=== PATIENT | male | born 1960 | race African-American/Black ===

== ENCOUNTER 2018-08-28 08:05 | Emergency (ER) | payer OTHER ==
[~2018-08-28] VITALS: Ht 175.3 cm; Wt 70.0 kg
[~2018-08-28 08:05] MED LIST: ABILIFY; NORCO; TRAZODONE
[2018-08-28] MEDS ORDERED: KETOROLAC 30MG/ML VIAL IV STA (08:46)
[2018-08-28] MEDS ORDERED: FAMOTIDINE 20MG/2ML VIAL IV STA (08:46)
[2018-08-28] MEDS ORDERED: SODIUM CHLORIDE 0.9% 1,000 ML IV ONE (08:46)
[2018-08-28] MEDS ORDERED: MAGNESIUM/ALUMINUM HYDROXIDE/SIMETHICONE 30ML UDC PO STA (08:46)
[2018-08-28 09:46] LABS: BASOPHILS % 0.6 % (0.0-2.0); EOSINOPHILS % 1.9 % (0.0-5.0); HEMATOCRIT. 42.6 % (42.0-52.0); HEMOGLOBIN. 13.7 g/dL (14.0-18.0); LYMPHOCYTES % 24.4 % (20.0-50.0); MEAN CORPUSCULAR HEMOGLOBIN 26.2 pg (28.0-32.0); MEAN CORPUSCULAR VOLUME 81.7 fL (80.0-94.0); MEAN PLATELET VOLUME 8.2 fl (7.4-10.4); MONOCYTES % 6.1 % (2.0-8.0); PLATELET 236 x1000/uL (130-400); RED BLOOD CELL COUNT 5.21 mill/uL (4.7-6.1); RED CELL DISTRIBUTION WIDTH 13.5 % (11.6-14.6)
[2018-08-28 09:50] LABS: CLARITY URINE CLEAR (CLEAR); COLOR URINE YELLOW (YELLOW); KETONES URINE NEGATIVE (NEGATIVE); LEUKOCYTE ESTERASE URINE NEGATIVE (NEGATIVE); NITRITE URINE NEGATIVE (NEGATIVE); OCCULT BLOOD URINE NEGATIVE (NEGATIVE); PROTEIN URINE NEGATIVE (NEGATIVE); SPECIFIC GRAVITY URINE 1.018 (1.005-1.030)
[2018-08-28 10:01] LABS: CHLORIDE 107 mEq/L (98-107)
[2018-08-28 10:08] LABS: ETHANOL BLOOD < 10 mg/dL
[2018-08-28 10:23] LABS: *AMPHETAMINES SCREEN URINE NEGATIVE (NEGATIVE); *BARBITURATES SCREEN URINE NEGATIVE (NEGATIVE); *BENZODIAZEPINES SCREEN URINE NEGATIVE (NEGATIVE); *COCAINE SCREEN URINE PRESUMTIVE POSITIVE (NEGATIVE)
[2018-08-28 10:24] LABS: CANNABINOID URINE SCREEN PRESUMTIVE POSITIVE (NEGATIVE); METHADONE URINE SCREEN NEGATIVE (NEGATIVE); OPIATES URINE SCREEN NEGATIVE (NEGATIVE); PHENCYCLIDINE URINE SCREEN PRESUMTIVE POSITIVE (NEGATIVE)
[2018-08-28 11:31] VITALS: BP 101/70
== END 2018-08-28 11:50 | disposition home or self-care (01) ==
LOC: ER 08:05
DX: R10.9 Unspecified abdominal pain (principal); F19.10 Other psychoactive substance abuse, uncomplicated; G40.909 Epilepsy, unspecified, not intractable, without status epilepticus; Z86.73 Personal history of transient ischemic attack (TIA), and cerebral infarction without residual deficits
CPT/HCPCS: 36415; 71045; 80053; 80305; 81003; 83690; 85025; 96361; 96374; 96375; 99284; G0482; J1885; J3490; J7030

== ENCOUNTER 2021-04-16 16:04 | Emergency (ER) | payer OTHER ==
[~2021-04-16] VITALS: Ht 182.9 cm; Wt 81.0 kg
[~2021-04-16 16:04] MED LIST changes: +CEPH500T PO; +IBUP-2028 MT; +SULF1TAB48 PO; +T3 PO
[2021-04-16 16:15] VITALS: BP 135/86
[2021-04-16] MEDS ORDERED: CEFTRIAXONE SODIUM 1 G/VIAL IM ONE (17:30)
[2021-04-16] MEDS ORDERED: AZIT250T MT (17:52)
[2021-04-16] MEDS ORDERED: DEXA4TAB MT (17:52)
== END 2021-04-16 18:08 | disposition home or self-care (01) ==
LOC: ER 16:04
DX: U07.1 COVID-19 (principal); Z86.16 Personal history of COVID-19
CPT/HCPCS: 71045; 96372; 99284; C9803; J0696; U0003; U0005

== ENCOUNTER 2024-11-22 16:02 | Emergency (ER) | payer MEDICAID, OTHER ==
[~2024-11-22] VITALS: Ht 182.9 cm; Wt 82.0 kg
[~2024-11-22 16:02] MED LIST changes: +ALBU18HF2 IH; +AZIT250T MT; +DEXA4TAB MT; +FLUT1DIS3 INH
[2024-11-22 16:04] VITALS: BP 118/68; PULSE 78; RESP 20; TEMP 36.9; O2SAT 100
[2024-11-22 17:00] LABS: BASOPHILS % 0.7 % (0.0-2.0); EOSINOPHILS % 4.5 % (0.0-5.0); HEMATOCRIT. 39.3 % (42.0-52.0); HEMOGLOBIN. 12.2 g/dL (14.0-18.0); LYMPHOCYTES % 24.5 % (20.0-50.0); MEAN CORPUSCULAR HEMOGLOBIN 25.7 pg (28.0-32.0); MEAN CORPUSCULAR VOLUME 82.9 fL (80.0-94.0); MEAN PLATELET VOLUME 8.2 fl (7.4-10.4); MONOCYTES % 7.3 % (2.0-8.0); PLATELET 174 x1000/uL (130-400); RED BLOOD CELL COUNT 4.74 mill/uL (4.7-6.1); RED CELL DISTRIBUTION WIDTH 13.7 % (11.6-14.6); WHITE BLOOD COUNT 5.2 x1000/uL (4.5-11.0)
[2024-11-22 17:12] LABS: CLARITY URINE CLEAR (CLEAR); COLOR URINE YELLOW (YELLOW); GLUCOSE URINE NEGATIVE (NEGATIVE); KETONES URINE NEGATIVE (NEGATIVE); LEUKOCYTE ESTERASE URINE NEGATIVE (NEGATIVE); NITRITE URINE NEGATIVE (NEGATIVE); OCCULT BLOOD URINE NEGATIVE (NEGATIVE); PROTEIN URINE TRACE (NEGATIVE); SPECIFIC GRAVITY URINE 1.014 (1.005-1.030)
[2024-11-22 17:12] LABS: INR 1.1; PROTHROMBIN TIME 11.4 sec (9.6-11.0)
[2024-11-22 17:17] LABS: CHLORIDE 101 mEq/L (98-107); POTASSIUM 4.1 mEq/L (3.5-5.1); SODIUM 141 mEq/L (136-145)
[2024-11-22 17:18] LABS: CARBON DIOXIDE 33 mEq/L (21-32)
[2024-11-22 17:19] LABS: CALCIUM 9.3 mg/dL (8.7-10.4)
[2024-11-22 17:23] LABS: CREATININE 0.9 mg/dL (0.6-1.3); GLUCOSE 89 mg/dL (70-105)
[2024-11-22 17:23] LABS: *AMPHETAMINES SCREEN URINE NEGATIVE (NEGATIVE); *BARBITURATES SCREEN URINE NEGATIVE (NEGATIVE); *BENZODIAZEPINES SCREEN URINE NEGATIVE (NEGATIVE); *COCAINE SCREEN URINE PRESUMPTIVE POSITIVE (NEGATIVE); METHADONE URINE SCREEN NEGATIVE (NEGATIVE)
[2024-11-22 17:24] LABS: CANNABINOID URINE SCREEN PRESUMPTIVE POSITIVE (NEGATIVE); ECSTASY MDMA SCREEN URINE NEGATIVE (NEGATIVE); OPIATES URINE SCREEN NEGATIVE (NEGATIVE); PHENCYCLIDINE URINE SCREEN PRESUMTIVE POSITIVE (NEGATIVE)
[2024-11-22 17:24] LABS: UREA NITROGEN BLOOD 16 mg/dL (9-23)
[2024-11-22 17:25] LABS: TROPONIN I HIGH SENSITIVITY 7 ng/L (3.0-53)
[2024-11-22 17:28] LABS: ETHANOL BLOOD < 10 mg/dL (<10)
[2024-11-22 19:04] LABS: BACTERIA URINE 1+; RBC URINE NONE SEEN /hpf (0-2); SQUAMOUS EPITHELIAL CELL URINE FEW /lpf (RARE/1+); WBC URINE 0-2 /hpf (0-2)
== END 2024-11-22 18:32 | disposition home or self-care (01) ==
LOC: ER 16:02
DX: F10.19 Alcohol abuse with unspecified alcohol-induced disorder (principal); Z79.51 Long term (current) use of inhaled steroids; Z79.899 Other long term (current) drug therapy; Y90.9 Presence of alcohol in blood, level not specified
CPT/HCPCS: 36415; 71045; 80048; 80305; 80320; 81003; 84484; 85025; 86850; 86900; 93005; 99285; G0480